=== PATIENT | female | born 1940 | race Two or more races ===

== ENCOUNTER 2025-05-15 15:13 | Emergency (ER) | payer OTHER, MEDICAID ==
[~2025-05-15] VITALS: Ht 154.9 cm; Wt 61.5 kg
[2025-05-15 15:14] VITALS: TEMP 98.5
--- NOTE | 2025-05-15 15:51 | DVH ---
EXAM: CT HEAD WITHOUT CONTRAST INDICATION: fall TECHNIQUE: CT images of the head were obtained without administration of IV contrast. CT scans at [facility] use dose modulation, iterative reconstruction, and/or weight based dosing when appropriate to reduce radiation dose to as low as reasonably achievable. COMPARISON: CT MAXILLOFACIAL WITHOUT on DOS: 05/15/25 FINDINGS: PARENCHYMA: No acute hemorrhage. There is no mass effect, midline shift, or herniation. There is pres ervation of the rodriguez white differentiation. Mild scattered hypoattenuation along the periventricular, centrum semiovale, and deep white matter tracts, which are nonspecific however statistically most li bonny represent chronic microvascular ischemic change. VENTRICLES: Severe dilation of the lateral ventricles with subsequent acute angle of the carpal callo ge angle measuring less than 90 degrees at 86 degrees. Dilation of the 3rd ventricle. Dilation of t he temporal horns. Correlate for hydrocephalus EXTRA-AXIAL SPACES: No extra-axial fluid collections. OTHER: The bony structures are intact. Visualized portions of the paranasal sinuses and mastoid air cells are clear. IMPRESSION: 1. No CT evidence of an acute intracranial hemorrhage. 2. Severe dilation of the lateral ventricles with subsequent acute angle of the callosal angle measur ing less than 90 degrees at 86 degrees. 3. Dilation of the 3rd ventricle. 4. Dilation of the temporal horns. 5. Correlate for hydrocephalus.
--- NOTE | 2025-05-15 16:08 | DVH ---
CT MAXILLOFACIAL WITHOUT INDICATION: fall TECHNIQUE: Noncontrast axial images of the facial bones are then obtained along with coronal and sagi ttal reformatted images. All CT scans at this facility use dose modulation, iterative reconstruction, and/or weight based dosing when appropriate to reduce radiation dose to as low as reasonably achieva ble. COMPARISON: CT HEAD WITHOUT CONTRAST on DOS: 05/15/25 FINDINGS: FACIAL BONES: The nasal, lacrimal, inferior nasal anjelica, and palatine bones are intact. The vomer an d perpendicular plate of the ethmoid are intact. The zygomatic bones are intact. The maxilla is intac t. The mandible is intact. PARANASAL SINUSES: The bony margins of the paranasal sinuses are intact. There is no air fluid level within the sinuses. Mucous retention cysts of the left maxillary sinus. ORBITS: The right and left globes are intact. The bony margins of the orbits are intact. The extracon al space is intact without inflammatory stranding of the extraconal fat. The extraocular muscles are symmetric. The intraconal space including the optic canal and nerve are symmetric. OTHER: Soft tissue swelling of the left forehead to [id number]-right preseptal space. IMPRESSION: 1. No CT evidence of an acute facial fracture. 2. Soft tissue swelling of the left periorbital region.
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
[2025-05-15 17:10] VITALS: BP 138/73
[2025-05-15 17:48] VITALS: PULSE 72; RESP 16; O2SAT 93
== END 2025-05-15 17:50 | disposition home or self-care (01) ==
LOC: ER 15:13
DX: S00.12XA Contusion of left eyelid and periocular area, initial encounter (principal); S00.11XA Contusion of right eyelid and periocular area, initial encounter; W19.XXXA Unspecified fall, initial encounter; Y93.89 Activity, other specified; Y92.89 Other specified places as the place of occurrence of the external cause; Y99.8 Other external cause status
CPT/HCPCS: 70450; 70486